=== PATIENT | female | born 1945 | race Caucasian/White ===

== ENCOUNTER 2017-08-22 17:18 | Inpatient (IN) | payer MEDICARE, OTHER ==
[~2017-08-22] VITALS: Ht 162.6 cm; Wt 61.9 kg
[2017-08-22] MEDS ORDERED: DEXAMETHASONE 10MG/ML PF INJ IV ONE (17:45)
[2017-08-22] MEDS ORDERED: MAGNESIUM SULFATE 2GM/50ML 50 ML IV ONE (17:45)
[2017-08-22] MEDS ORDERED: ALBUTEROL/IPRATROPIUM 3 ML NEB NEB ONE (17:45)
[2017-08-22 18:02] LABS: BASOPHILS % 0.3 % (0.0-1.0); EOSINOPHILS % 0.1 % (0.0-6.0); HEMATOCRIT 46.4 % (34.2-44.1); HEMOGLOBIN 14.4 g/dL (12.0-16.0); LYMPHOCYTES # (AUTO) 1.5 (1.0-3.2); LYMPHOCYTES % 19.1 % (18.0-39.1); MEAN CORPUSCULAR HEMOGLOBIN 29.8 pg (28-32); MEAN CORPUSCULAR VOLUME 95.9 fL (81-99); MONOCYTES # (AUTO) 0.8 (0.2-0.8); MONOCYTES % 9.9 % (4.4-11.3); NEUTROPHILS # (AUTO) 5.4 (2.1-6.9); PLATELET COUNT 181 x10e3/uL (140-360); RED BLOOD COUNT 4.84 x10e6/uL (3.6-5.1); RED CELL DISTRIBUTION WIDTH 15.3 % (11.7-14.4)
[2017-08-22] MEDS ORDERED: DEXAMETHASONE SOD PHOS 10 MG/1 ML VIAL ONE (18:02)
[2017-08-22 18:13] LABS: INR 1.04; PROTHROMBIN TIME 12.8 seconds (11.9-14.5)
[2017-08-22 18:14] LABS: PARTIAL THROMBOPLASTIN TIME 24.8 seconds (23.8-35.5)
[2017-08-22 18:21] LABS: ALANINE AMINOTRANSFERASE 45 IU/L (0-55); ALBUMIN 3.2 g/dL (3.5-5.0); ALKALINE PHOSPHATASE 66 IU/L (40-150); ANION GAP 11.7 mmol/L (8-16); BLOOD UREA NITROGEN 27 mg/dL (7-26); BUN/CREATININE RATIO 35 (6-25); CALCIUM 10.1 mg/dL (8.4-10.2); CARBON DIOXIDE 37 mmol/L (22-29); CHLORIDE 96 mmol/L (98-107); CREATINE KINASE 52 IU/L (29-168); CREATININE, SERUM 0.78 mg/dL (0.57-1.11); EST GLOMERULAR FILTRATION RATE > 60 ML/MIN (60-); GLUCOSE 99 mg/dL (74-118); POTASSIUM 4.7 mmol/L (3.5-5.1); SODIUM 140 mmol/L (136-145)
[2017-08-22] MEDS ORDERED: SODIUM CHLORIDE 0.9% 50ML 50 ML ONE (18:31)
[2017-08-22] MEDS ORDERED: IOPAMIDOL 370 MG/ML 200 ML INFUS..BTL INJ ONE (18:32)
[2017-08-22 18:54] LABS: ABG PH 7.42 (7.31-7.41)
[2017-08-22 18:55] LABS: ABG HCO3 44 mmol/L (23-28); ABG PCO2 67 mmHg (41-51); ABG PO2 88 mmHg (80-105)
--- NOTE | 2017-08-22 19:07 | Diagnostic Imaging Report ---
PROCEDURE: A single AP view of the chest. COMPARISON: Chest x-ray 03/14/2010. INDICATIONS: LOW OXYGEN FINDINGS: Lines/tubes: None. Lungs: Lungs are hypoinflated. Airspace opacities in the right lung base is again seen and slightly increased in prominence secondary to hypoinflation. Right infrahilar masslike region is more prominent. Left basilar atelectasis. Superimposed pneumonia cannot be excluded. Interstitial edema. Pleura: Likely small right pleural effusion. Heart and mediastinum: The heart and the mediastinum are normal in size. Bones: No acute bony abnormality. Right axillary surgical clips. IMPRESSION: 1. Hypoinflated lungs. Interstitial edema which may be artifactual secondary to hypoinflated lungs. 2. Likely small right pleural effusion. Previous right lung base air space opacity is more accentuated by low lung bones. Right infrahilar prominence is increased suggestive of mass or adenopathy. Dictated by: Matthew Felix M.D. on 08/22/2017 at 19:09 Electronically approved by: Matthew Felix M.D. on 08/22/2017 at 19:09
[2017-08-22] MEDS ORDERED: FUROSEMIDE INJ 10 MG/ML 4 ML VIAL IV ONE (19:15)
--- NOTE | 2017-08-22 19:56 | Diagnostic Imaging Report ---
EXAM: CT Chest WITH contrast 08/22/2017 5:26 PM INDICATION: Shortness of breath. Hypoxia. Tachycardia rule out PE. COMPARISON: None TECHNIQUE: Chest was scanned utilizing a multidetector helical scanner from the lung apex through the level of the adrenal glands without administration of IV contrast. Coronal and sagittal reformations were obtained. Pulmonary embolism protocol was performed. IV CONTRAST: 100 mL of Omnipaque 300 RADIATION DOSE: Total DLP: 498.55 mGy*cm Estimated effective dose: (DLP x 0.014 x size factor) mSv COMPLICATIONS: None FINDINGS: LINES/ TUBES: None. LUNGS AND AIRWAYS: No filling defects to the resolved segmental pulmonary arteries to suggest pulmonary embolism as per clinical query. The main pulmonary artery is mildly dilated estimated at 3.3 cm in diameter. Right upper lobe patchy airspace disease with air bronchograms. Bilateral lower lobe compressive atelectasis. Left lower lobe subsegmental atelectasis. Prominence of the pulmonary vasculature with redistribution bilaterally. PLEURA: Small right pleural effusion HEART AND MEDIASTINUM: The thyroid gland is normal. No mediastinal, hilar or axillary lymphadenopathy. The heart is moderately enlarged. tThere is no pericardial effusion. UPPER ABDOMEN: Limited non-contrast views of the upper abdomen show no colonic diverticulosis without diverticulitis. The adrenal glands are normal. BONES: No acute osseous abnormality. Mild dextroscoliosis of the thoracic spine may be positional. SOFT TISSUES: Right axillary surgical clips. IMPRESSION: 1. No evidence of pulmonary embolism. 2. Moderate cardiomegaly and bilateral pulmonary venous congestion. Cannot exclude superimposed infection in the right lung. 3. Small right pleural effusion. Bilateral lower lobe atelectasis. 4. Patchy airspace disease in the right apex may represent scarring. Recommend follow-up after treatment to document resolution. Signed by: Dr. Kanika Roberts M.D. on 08/22/2017 7:53 PM
[2017-08-22 20:42] LABS: CLARITY,URINE CLEAR (CLEAR); COLOR,URINE YELLOW (YELLOW)
[2017-08-22 20:43] LABS: BILIRUBIN,URINE NEGATIVE (NEGATIVE); KETONES,URINE NEGATIVE (NEGATIVE); LEUKOCYTE ESTERASE ,URINE NEGATIVE (NEGATIVE); NITRITE,URINE NEGATIVE (NEGATIVE); PROTEIN,URINE DIPSTICK 2+ (NEGATIVE); URINE UROBILINOGEN 0.2 mg/dL (0.2 - 1)
[2017-08-22 21:06] LABS: EPITHELIAL CELLS,URINE RARE /LPF; WBC,URINE (MAN) 0-5 /HPF (0-5)
[2017-08-22 21:07] LABS: BACTERIA,URINE FEW /HPF
[2017-08-22 21:08] LABS: HYALINE CASTS 0-1 (0-1)
[2017-08-22] MEDS ORDERED: ASPIRIN 81 MG CHEW TAB PO ONE (21:15)
--- OUTSIDE RECORDS SUMMARY | 2017-08-22 21:25 | XMS REPORT ---
Author Author [facility] Address Unknown Phone Unavailable Care Team Providers Care Bond Runner Name Role Phone DESTINEE GARCIA Unavailable Unavailable Problems This patient has no known problems. Allergies, Adverse Reactions, Alerts This patient has no known allergies or adverse reactions. Medications This patient has no known medications. Results Test Description Test Time Test Comments Text Results Atomic Results Result Comments CT CHEST W [place] [address] Patient Name: INA HOLLIS MR #: [id number] : 1945 Age/Sex: 72/F Req # : [id number] Adm Physician: Ordered by: DESTINEE GARCIA MD Report #: [id number] Location: ER Room/Bed: Procedure: [id number] CT/CT CHEST W Exam Date: 08/22/17 Exam Time: 1925 REPORT STATUS: Signed EXAM: CT Chest WITH contrast 08/22/2017 5:26 PM INDICATION: Shortness of breath. Hypoxia. Tachycardia rule out PE. COMPARISON: None TECHNIQUE: Chest was scanned utilizing a multidetector helical scanner from the lung apex through the level of the adrenal glands without administration of IV contrast. Coronal and sagittal reformations were obtained. Pulmonary embolism protocol was performed. IV CONTRAST : 100 mL of Omnipaque 300 RADIATION DOSE: Total DLP: 498.55 mGy*cm Estimated effective dose: (DLP x 0.014 x size factor) mSv COMPLICATIONS: None FINDINGS: LINES/ TUBES: None. LUNGS AND AIRWAYS: No filling defects to the resolved segmental pulmonary arteries to suggest pulmonary embolism as per clinical query. The main pulmonary artery is mildly dilated estimated at 3.3 cm in diameter. Right upper lobe patchy airspace disease with air bronchograms. Bilateral lower lobe compressive atelectasis. Left lower lobe subsegmental atelectasis. Prominence of the pulmonary vasculature with redistribution bilaterally. PLEURA: Small right pleural effusion HEART AND MEDIASTINUM: The thyroid gland is normal. No mediastinal, hilar or axillary lymphadenopathy. The heart is moderately enlarged. tThere is no pericardial effusion. UPPER ABDOMEN: Limited non-contrast views of the upper abdomen show no colonic diverticulosis without diverticulitis. The adrenal glands are normal. BONES : No acute osseous abnormality. Mild dextroscoliosis of the thoracic spine may be positional. SOFT TISSUES: Right axillary surgical clips. IMPRESSION: 1. No evidence of pulmonary embolism. 2. Moderate cardiomegaly and bilateral pulmonary venous congestion. Cannot exclude superimposed infection in the right lung. 3. Small right pleural effusion. Bilateral lower lobe atelectasis. 4. Patchy airspace disease in the right apex may represent scarring. Recommend follow-up after treatment to document resolution. Signed by: Dr. Kanika Rivera M.D. on 2017 7:53 PM Dictated By: EDA RIVERA MD, MD 52 Transcribed By: CHANA on 08/22/171952 COPY TO: DESTINEE GARCIA MD CHEST SINGLE (PORTABLE) [place] [address] Patient Name: INA HOLLIS MR #: [id number] : 1945 Age/Sex: 72/F Req #: [id number] Adm Physician: Ordered by: JANY PAREKH NP Report #: [id number] Location: ER Room/Bed: Procedure: [id number] DX/CHEST SINGLE (PORTABLE) Exam Date: 08/22/17 Exam Time: 1830 REPORT STATUS: Signed PROCEDURE: A single AP view of the chest. COMPARISON: Chest x-ray 03/14/2010. INDICATIONS: LOW OXYGEN FINDINGS: Lines/tubes: None. Lungs : Lungs are hypoinflated. Airspace opacities in the right lung base is again seen and slightly increased in prominence secondary to hypoinflation. Right infrahilar masslike region is more prominent. Left basilar atelectasis. Superimposed pneumonia cannot be excluded. Interstitial edema. Pleura: Likely small right pleural effusion. Heart and mediastinum: The heart and the mediastinum are normal in size. Bones: No acute bony abnormality. Right axillary surgical clips. IMPRESSION: 1. Hypoinflated lungs. Interstitial edema which may be artifactual secondary to hypoinflated lungs. 2. Likely small right pleural effusion. Previous right lung base air space opacity is more accentuated by low lung bones. Right infrahilar prominence is increased suggestive of mass or adenopathy. Dictated by: Sánchez Madrid M.D. on 08/22/2017 at 19:09 Electronically approved by: Sánchez Madrid M.D. on 08/22/2017 at 19:09 Dictated By: SÁNCHEZ MADRID MD 08 Transcribed By: MERCED on 08/22/171908 COPY TO: JANY PAREKH NP
[2017-08-22 21:29] LABS: ABG HCO3 44 mmol/L (23-28); ABG PCO2 88 mmHg (41-51); ABG PO2 91 mmHg (80-105)
[2017-08-22] MEDS ORDERED: DIPHENHYDRAMINE HCL INJ 50 MG/ML VIAL ONE (22:36)
[2017-08-22] MEDS ORDERED: SUCCINYLCHOLINE CHLORIDE 20 MG/ML 10ML VIAL ONE (22:47)
[2017-08-22] MEDS ORDERED: SUCCINYLCHOLINE 200 MG/10 ML SYR IV STA (22:56)
[2017-08-22] MEDS ORDERED: DEXMEDETOMIDINE HCL 200 MCG in SODIUM CHLORIDE 0.9% 50ML 48 ML IV PRN (23:00)
[2017-08-22] MEDS ORDERED: MIDAZOLAM HCL 2 MG/2 ML VIAL IV STA (23:03)
[2017-08-22] MEDS ORDERED: MIDAZOLAM HCL 2 MG/2 ML VIAL ONE (23:03)
[2017-08-22 23:10] LABS: ABG PH 7.28 (7.31-7.41)
[2017-08-22 23:11] LABS: ABG HCO3 45 mmol/L (23-28); ABG PCO2 97 mmHg (41-51); ABG PO2 102 mmHg (80-105)
--- NOTE | 2017-08-22 23:33 | Diagnostic Imaging Report ---
EXAMINATION: CHEST SINGLE (PORTABLE) INDICATION: Intubation. COMPARISON: CT of the chest on 08/22/2017 FINDINGS: TUBES and LINES: Interval placement of endotracheal tube with tip 1.7 cm above the lucero in good position. LUNGS: Decreased right lung volume. Areas of peripheral atelectasis noted at the right lung base. PLEURA: Small right pleural effusion. HEART AND MEDIASTINUM: The mediastinum is slightly shifted to the right of midline due to right lung volume loss. There are atherosclerotic calcifications within the aorta. BONES AND SOFT TISSUES: No acute osseous lesion. Soft tissues are unremarkable. UPPER ABDOMEN: No free air under the diaphragm. IMPRESSION: Endotracheal tube in good position. Right lung pathology is best visualized on CT of the chest. Signed by: Dr. Hal Blum M.D. on 08/22/2017 11:29 PM
[2017-08-23] VITALS (90 sets, daily range): BP systolic 82–128; BP diastolic 51–79
[2017-08-23 01:34] LABS: CREATINE KINASE MB 10.8 ng/mL (0-5.0)
[2017-08-23 02:14] LABS: ABG HCO3 39 mmol/L (23-28); ABG PCO2 35 mmHg (41-51); ABG PH 7.66 (7.31-7.41); ABG PO2 100 mmHg (80-105)
[2017-08-23] MEDS ORDERED: DEXMEDETOMIDINE HCL 200 MCG in SODIUM CHLORIDE 0.9% 50ML 48 ML IV PRN (04:15)
[2017-08-23 05:55] LABS: BASOPHILS % 0.1 % (0.0-1.0); EOSINOPHILS % 0.1 % (0.0-6.0); HEMATOCRIT 42.8 % (34.2-44.1); HEMOGLOBIN 13.8 g/dL (12.0-16.0); LYMPHOCYTES % 10.9 % (18.0-39.1); MEAN CORPUSCULAR HEMOGLOBIN 29.4 pg (28-32); MEAN CORPUSCULAR HGB CONC 32.2 g/dL (31-35); MEAN CORPUSCULAR VOLUME 91.3 fL (81-99); MONOCYTES # (AUTO) 0.7 (0.2-0.8); MONOCYTES % 7.9 % (4.4-11.3); NEUTROPHILS # (AUTO) 7.2 (2.1-6.9); NEUTROPHILS % 80.6 % (38.7-80.0); PLATELET COUNT 159 x10e3/uL (140-360); RED BLOOD COUNT 4.69 x10e6/uL (3.6-5.1)
--- NOTE | 2017-08-23 06:17 | Diagnostic Imaging Report ---
EXAMINATION: CHEST SINGLE (PORTABLE) INDICATION: CHF. COMPARISON: CT of the chest on 08/22/2017 and chest x-ray on 08/22/2017 FINDINGS: TUBES and LINES: The endotracheal tube is now at the level of the right mainstem bronchus. Repositioning is recommended. LUNGS: Decreased right lung volume. Areas of peripheral atelectasis noted at the right lung base. There is no evidence of pneumonia or pulmonary edema. PLEURA: Small right pleural effusion. HEART AND MEDIASTINUM: The mediastinum is slightly shifted to the right of midline due to right lung volume loss. There are atherosclerotic calcifications within the aorta. BONES AND SOFT TISSUES: No acute osseous lesion. Soft tissues are remarkable for innumerable surgical clips overlying the right axilla. UPPER ABDOMEN: No free air under the diaphragm. IMPRESSION: Endotracheal tube is now in suboptimal position of the origin of the right mainstem bronchus. Right lung pathology is best visualized on CT of the chest with moderate lung volume loss. Signed by: Dr. Hal Blum M.D. on 08/23/2017 6:14 AM
[2017-08-23 06:22] LABS: ALANINE AMINOTRANSFERASE 42 IU/L (0-55); ALBUMIN 2.9 g/dL (3.5-5.0); ALBUMIN/GLOBULIN RATIO 1.2 (0.8-2.0); ALKALINE PHOSPHATASE 56 IU/L (40-150); BLOOD UREA NITROGEN 27 mg/dL (7-26); BUN/CREATININE RATIO 31 (6-25); CALCIUM 9.2 mg/dL (8.4-10.2); CARBON DIOXIDE 33 mmol/L (22-29); CHLORIDE 94 mmol/L (98-107); CREATININE, SERUM 0.86 mg/dL (0.57-1.11); EST GLOMERULAR FILTRATION RATE > 60 ML/MIN (60-); GLUCOSE 107 mg/dL (74-118); SODIUM 138 mmol/L (136-145)
[2017-08-23 06:28] LABS: ABG HCO3 36 mmol/L (23-28); ABG PCO2 31 mmHg (41-51); ABG PH 7.68 (7.31-7.41); ABG PO2 86 mmHg (80-105)
[2017-08-23 07:44] LABS: CREATINE KINASE MB 13.1 ng/mL (0-5.0)
--- NOTE | 2017-08-23 08:56 | Diagnostic Imaging Report ---
PROCEDURE: A single AP view of the chest. COMPARISON: 08/23/2017 at 0531 hours. INDICATIONS: AMS, ET TUBE POSITION FINDINGS: The endotracheal tube has been retracted. The tip now projects 3.3 cm above the lucero. Appearance of the lungs is overall unchanged with right greater than left lung base atelectasis and small bilateral pleural effusions. Stable cardiomediastinal contour with tortuosity and atherosclerotic calcification of the thoracic aorta. Surgical clips along the right chest wall. IMPRESSION: Interval retraction of the endotracheal tube with the tip now projecting 3.3 cm above the lucero. Otherwise stable appearance of the lungs relative to 0531 hours. Dictated by: Samuel Le M.D. on 08/23/2017 at 8:58 Electronically approved by: Samuel Le M.D. on 08/23/2017 at 8:58
[2017-08-23] MEDS ORDERED: FUROSEMIDE INJ 10 MG/ML 4 ML VIAL IV SCH (09:00)
[2017-08-23] MEDS ORDERED: POTASSIUM CHLORIDE 10 MEQ TABCR PO ONE (09:00)
[2017-08-23] MEDS ORDERED: SODIUM CHLORIDE 0.9% 1000ML 1,000 ML ONE (09:57)
[2017-08-23] MEDS ORDERED: AZITHROMYCIN 500MG/NS 250 ML 250 ML ONE (10:09)
[2017-08-23] MEDS: CEFTRIAXONE SOD 1 GM VIAL IV SCH (10:19)
[2017-08-23] MEDS: AZITHROMYCIN 500MG/NS 250 ML 250 ML IV SCH (10:19)
--- NOTE | 2017-08-23 10:22 | History and Physical ---
PCP: Pearl Stallings MD CONSULTANTS: Dr. Evin Nino and Dr. Samuel Carrasco CHIEF COMPLAINT: Pulmonary edema and respiratory failure. HISTORY: This is a 72-year-old female with no significant coronary problem in the past. The patient has progressive shortness of breath and came in with pulmonary edema, subsequently went into respiratory failure and required intubation. Her echocardiogram done today showed her ejection fraction is approximately 40%. CT scan of the chest showed pulmonary edema. Patient is receiving diuretic. She is on ventilator support now. She did retain CO2 with 88 to 97, even on BiPAP during the night. The patient is now on ventilator support, assist control with 40% FiO2. Patient seems to be comfortable at this time. PAST MEDICAL HISTORY: Hypertension. History of laparoscopic colorectal partial resection. History of asthma. SOCIAL HISTORY: Patient does not smoke or use alcohol. No recreational drug use. ALLERGIES: NO KNOWN ALLERGIES. HOME MEDICATIONS: List will be available for review. REVIEW OF SYSTEMS: Patient on ventilator support, assist control now. PHYSICAL EXAMINATION VITAL SIGNS: Temperature is 98. Blood pressure 93/59. Pulse rate 78. Respirations 22. GENERAL: The patient is on vent support, assist control 40% FiO2. HEENT: Normocephalic and atraumatic. Sclerae are anicteric. NECK: Supple grossly. Positive JVD. PULMONARY: Diminished breath sounds with rales. CARDIOVASCULAR: Regular rate and rhythm. ABDOMEN: Soft. No distention. EXTREMITIES: Trace to 1+ edema. NEUROLOGIC: Sedation on vent support. LABORATORY: Sodium 138, potassium 4, chloride 94, bicarb 33, BUN 27, creatinine 0.8. Glucose 107. WBC is 8.9. Hemoglobin 13.8. Hematocrit 43. Platelets 159. CTA of the chest and x-ray consistent with pulmonary edema. Cardiac enzymes have been negative. BNP on admission 776. CK is 99. Coagulation is unremarkable. Urinalysis is negative. IMPRESSION 1. Respiratory failure acutely. Mechanical ventilator support. 2. Pulmonary edema. 3. Congestive heart failure acute. Systolic congestive heart failure newly diagnosed. 4. Hypotensive, but episodically. PLAN: Continue to diurese. Cardiology consultation with Dr. Evin Nino and critical care with Dr. Samuel Carrasco. Continue with current management. Repeated lab work. Check electrolytes. May need potassium replacement. Job#: [id number]
[2017-08-23] MEDS: SODIUM CHLORIDE 0.9% 1000ML 1,000 ML IV SCH ×2 (10:30→18:34)
[2017-08-23] MEDS: PANTOPRAZOLE 40 MG 10ML VIAL IV SCH (11:29)
[2017-08-23 11:49] LABS: ABG HCO3 40 mmol/L (23-28); ABG PCO2 48 mmHg (41-51); ABG PH 7.53 (7.31-7.41); ABG PO2 119 mmHg (80-105)
--- NOTE | 2017-08-23 12:51 | Consultation ---
DATE OF CONSULTATION: August 23, 2017 CARDIOLOGY CONSULTATION ATTENDING PHYSICIAN: Dr. Bucky Jiménez Thank you so much for asking me to see this nice lady in consultation. Ms. Ponce is an elderly 72-year-old woman who was brought to the emergency room by her family with decreased alertness and shortness of breath. History of present illness is obtained from the patient's daughter at the bedside, tells me that she has been very sleepy in the daytime, seemed to be short of breath but she did not note any particular coughing, sputum, fever or sweats. HISTORY OF PRESENT ILLNESS: Patient never known of any cardiac problem. Family denies any chest pain or palpitations. PAST MEDICAL HISTORY: Significant for "asthma." She has been albuterol inhaler at home. She had breast cancer about 20 years ago, operated at [facility] on the right axilla, treated with chemo, radiation and "bone marrow transplant" according to the family's history saying it was an experimental treatment at [facility] at that time about 20 years ago. Evidently no evidence of recurrence with breast cancer has ever been noted. She did have a surgery for colon problems that evidently reportedly was found to be further associated with the rectum at [facility] 2016 and the family tells me that there were problems with "CO2 narcosis" during that hospitalization. REVIEW OF SYSTEMS: Otherwise not available. PHYSICAL EXAMINATION GENERAL: Shows a sleepy white woman on ventilator who does nod her head and move her arms and legs. VITALS: Blood pressure is 90 to 95 systolic, heart rate is 79. HEENT: Otherwise unremarkable. NECK: No jugular venous distention. THORAX: Heart sounds S1, S2 are equal. No murmurs. LUNGS: Have coarse rhonchi bilaterally. ABDOMEN: Protuberant. Normal bowel sounds, nontender. EXTREMITIES: No cyanosis, clubbing or edema. EKG shows sinus rhythm, sinus tachycardia with no significant ST or T-wave changes. LABORATORY DATA: Show initial BNP of 776 with repeat of 280. CAT scan of the chest shows right apex scarring and infiltrate with right pleural process. Troponins are normal times 3. Echocardiogram is a technically difficult study, a rather poor study, but suggests ejection fraction 45 to 50% without pericardial or significant valvular disease. ASSESSMENT 1. Pneumonia. 2. Chronic obstructive pulmonary disease without history of tobacco usage. 3. Minimal elevation of brain natriuretic peptide with echocardiogram ejection fraction 45 to 50%. PLAN: Agree with antibiotics and ventilator support. Will stop Lasix and give IV fluids. Have discussed with family at bedside. Prognosis is guarded. Thank for asking to see her consultation. ZAINAB PAREDES MD Job#: [id number] DG cc:Bertha GAMBLE MD
--- NOTE | 2017-08-23 15:05 | Consultation ---
DATE OF CONSULTATION: PULMONARY CRITICAL CARE CONSULTATION PRIMARY CARE PHYSICIAN: Pearl Stallings MD HPI: Ms. Ponce is a 72-year-old female who was brought into the emergency room by her because she was not feeling well and she was increasingly somnolent. reported that he noticed that patient was sleepy during the day for the last week or so, was having difficulty talking and breathing. She is a lifelong nonsmoker. She was apparently prescribed a pain medication, which they do not remember the name for her stomach pain, which she has been taking for the last 1 to 2 weeks. She does not snore. She has never been diagnosed with obstructive sleep apnea. She has no major medical issues. REVIEW OF SYSTEMS: Unable to elicit from the patient as she is on sedation and intubated. PAST MEDICAL HISTORY: History of hypertension. No known history of heart failure per the family. FAMILY AND SOCIAL HISTORY: She lives with her . She does not smoke and does not drink. PHYSICAL EXAMINATION VITALS: Temperature 98.8, pulse of 78, blood pressure 93/60, respiratory rate of 18, and O2 sat 98%. HEENT: Head atraumatic, normocephalic. Pupils reactive. CHEST: Clear to auscultation bilaterally. Reduced air entry on the bases. Crackles on the bases. HEART: S1 and S2 audible. ABDOMEN: Soft, nontender, and nondistended. EXTREMITIES: No clubbing, cyanosis, or edema. NEUROLOGIC: Sedated and intubated. LABORATORY DATA: White count of 8000, hemoglobin 13.8, and platelets 159. Chemistry: Sodium 138, potassium 4.0, chloride 94, bicarb 33, BUN 27, and creatinine 0.86. Creatinine kinase when she came in was 52 and now it is 699, CK-MB 13.10, and troponin has been negative. BNP 280.5. TSH 1.44. Blood gas, which was initially done in the emergency showed pH of 7.42, pCO2 of 67, and pO2 of 88; this was done on FiO2 of 100%. DIAGNOSTIC DATA: Chest x-ray: I have reviewed the images showing low lung volumes and dense right lower lobe infiltrate; that was the first x-ray that was done. CT of the chest, I have reviewed the images showing bilateral air space opacities and right apex has an area of consolidation and there is right lower lobe area of consolidation as well. ASSESSMENT AND PLAN: Ms. Ponce is a 72-year-old female who presented with increasing somnolence and shortness of breath. She was having problem with breathing and increasing somnolence for the last few days. She was hypercapnic on admission. The bicarbonate was 37 on admission, which suggests the patient has been chronically hypercapnic for quite some time. CURRENT PROBLEMS 1. [id number] hypercapnic respiratory failure: Etiology is not very clear. Patient is not a smoker neither she is obese; that rules out chronic obstructive pulmonary disease and obesity hypoventilation syndrome. Chest x-ray is showing low lung volumes. Neuromuscular disorder can be a possibility; however, the symptoms are not chronic and the physical exam is not consistent with this diagnosis. 2. High CPKs with CK-MB also high, however, troponins are normal, could be suggestive of myositis or viral muscle injury. We will follow. 3. Possibility of heart failure as BNP was high, however, no previous history of coronary artery disease. Echo has been ordered. We will follow the results. 4. Right lower lobe pneumonia, could be aspiration when she was somnolent and was unable to protect the airway, dense consolidation in the right upper lobe area as well. In my opinion, I cannot rule out mass and of course will need a followup CT once the acute phase is over. I will start the patient on IV antibiotics for pneumonia. 5. Ventilator settings reviewed. CPAP and pressure support tried at bedside. Patient is still somnolent. We will discontinue the Precedex and continue to attempt weaning. 6. Discussed with patient's and daughter at bedside in detail. Critical care time spent 45 minutes. Job#: [id number] VAS
[2017-08-23 15:21] LABS: CREATINE KINASE MB 8.7 ng/mL (0-5.0)
[2017-08-23] MEDS: ENOXAPARIN SOD INJ 40 MG/0.4 ML SYR SC SCH (18:34)
[2017-08-23] MEDS ORDERED: SODIUM CHLORIDE 0.9% 1000ML 1,000 ML IV SCH (21:30)
[2017-08-24] VITALS (40 sets, daily range): BP systolic 108–135; BP diastolic 63–82
[2017-08-24 06:07] LABS: BASOPHILS % 0.3 % (0.0-1.0); EOSINOPHILS % 0.2 % (0.0-6.0); HEMATOCRIT 43.9 % (34.2-44.1); HEMOGLOBIN 14.3 g/dL (12.0-16.0); LYMPHOCYTES # (AUTO) 1.9 (1.0-3.2); LYMPHOCYTES % 21.1 % (18.0-39.1); MEAN CORPUSCULAR HEMOGLOBIN 29.2 pg (28-32); MEAN CORPUSCULAR HGB CONC 32.6 g/dL (31-35); MEAN CORPUSCULAR VOLUME 89.8 fL (81-99); MONOCYTES # (AUTO) 0.7 (0.2-0.8); NEUTROPHILS # (AUTO) 6.4 (2.1-6.9); NEUTROPHILS % 70.1 % (38.7-80.0); PLATELET COUNT 146 x10e3/uL (140-360); RED BLOOD COUNT 4.89 x10e6/uL (3.6-5.1); RED CELL DISTRIBUTION WIDTH 15.7 % (11.7-14.4)
[2017-08-24 06:42] LABS: ANION GAP 13.3 mmol/L (8-16); BLOOD UREA NITROGEN 26 mg/dL (7-26); BUN/CREATININE RATIO 33 (6-25); CALCIUM 8.3 mg/dL (8.4-10.2); CARBON DIOXIDE 27 mmol/L (22-29); CHLORIDE 103 mmol/L (98-107); EST GLOMERULAR FILTRATION RATE > 60 ML/MIN (60-); GLUCOSE 64 mg/dL (74-118); POTASSIUM 3.3 mmol/L (3.5-5.1); SODIUM 140 mmol/L (136-145)
[2017-08-24] MEDS: AZITHROMYCIN 500MG/NS 250 ML 250 ML IV SCH (09:36)
[2017-08-24] MEDS: PANTOPRAZOLE 40 MG 10ML VIAL IV SCH (09:36)
[2017-08-24] MEDS: CEFTRIAXONE SOD 1 GM VIAL IV SCH (09:36)
[2017-08-24 09:52] LABS: ABG HCO3 30 mmol/L (23-28); ABG PCO2 42 mmHg (41-51); ABG PH 7.46 (7.31-7.41); ABG PO2 149 mmHg (80-105)
[2017-08-24] MEDS ORDERED: POTASSIUM CHLORIDE 20MEQ/100ML 200 ML IV ONE (10:00)
[2017-08-24] MEDS ORDERED: SODIUM CHLORIDE 0.9% 500ML 500 ML ONE (13:25)
[2017-08-24] MEDS: ENOXAPARIN SOD INJ 40 MG/0.4 ML SYR SC SCH (18:53)
[2017-08-25] VITALS (20 sets, daily range): BP systolic 102–129; BP diastolic 58–85
[2017-08-25] MEDS: PANTOPRAZOLE 40 MG 10ML VIAL IV SCH (08:51)
[2017-08-25] MEDS: CEFTRIAXONE SOD 1 GM VIAL IV SCH (08:51)
[2017-08-25] MEDS: AZITHROMYCIN 500MG/NS 250 ML 250 ML IV SCH (08:51)
[2017-08-25] MEDS: POTASSIUM CHLORIDE 10 MEQ TABCR PO ONE ×2 (12:43→12:54)
[2017-08-25] MEDS: ALBUTEROL/IPRATROPIUM 3 ML NEB NEB SCH ×2 (14:20→19:35)
[2017-08-25] MEDS: ENOXAPARIN SOD INJ 40 MG/0.4 ML SYR SC SCH (16:18)
[2017-08-26] VITALS (8 sets, daily range): BP systolic 107–144; BP diastolic 62–75
[2017-08-26] MEDS: ALBUTEROL/IPRATROPIUM 3 ML NEB NEB SCH ×4 (02:00→19:00)
[2017-08-26 06:18] LABS: BASOPHILS % 0.3 % (0.0-1.0); EOSINOPHILS # (AUTO) 0.1 (0.0-0.4); EOSINOPHILS % 1.4 % (0.0-6.0); HEMATOCRIT 45.6 % (34.2-44.1); HEMOGLOBIN 13.8 g/dL (12.0-16.0); LYMPHOCYTES # (AUTO) 1.2 (1.0-3.2); MEAN CORPUSCULAR HEMOGLOBIN 29.6 pg (28-32); MEAN CORPUSCULAR HGB CONC 30.3 g/dL (31-35); MEAN CORPUSCULAR VOLUME 97.9 fL (81-99); MONOCYTES # (AUTO) 0.6 (0.2-0.8); MONOCYTES % 8.4 % (4.4-11.3); NEUTROPHILS # (AUTO) 5.2 (2.1-6.9); NEUTROPHILS % 72.5 % (38.7-80.0); PLATELET COUNT 136 x10e3/uL (140-360); RED BLOOD COUNT 4.66 x10e6/uL (3.6-5.1); RED CELL DISTRIBUTION WIDTH 15.6 % (11.7-14.4)
--- NOTE | 2017-08-26 07:00 | Diagnostic Imaging Report ---
EXAMINATION: CHEST SINGLE (PORTABLE) INDICATION: Pneumonia COMPARISON: 08/23/2017 FINDINGS: TUBES and LINES: Interval removal of endotracheal tube. LUNGS: Lungs are not well inflated. There are bibasilar atelectasis. There is perihilar interstitial opacities, consistent with interstitial edema. PLEURA: Moderate right pleural effusion has increased HEART AND MEDIASTINUM: Cardiac size is mildly enlarged. The aorta is ectatic with atherosclerotic calcifications. BONES AND SOFT TISSUES: No acute osseous lesion. Soft tissues are again noted with multiple surgical clips in the right axillary region. UPPER ABDOMEN: No free air under the diaphragm. IMPRESSION: Worsening pulmonary edema, Central vascular congestion and right lower lobe consolidation consistent with pneumonia. Right pleural effusion is worsening. Signed by: Dr. Hal Blum M.D. on 08/26/2017 6:57 AM
[2017-08-26 08:16] LABS: ANION GAP 9.2 mmol/L (8-16); BLOOD UREA NITROGEN 17 mg/dL (7-26); BUN/CREATININE RATIO 27 (6-25); CARBON DIOXIDE 28 mmol/L (22-29); CHLORIDE 106 mmol/L (98-107); CREATININE, SERUM 0.64 mg/dL (0.57-1.11); EST GLOMERULAR FILTRATION RATE > 60 ML/MIN (60-); GLUCOSE 90 mg/dL (74-118); POTASSIUM 4.2 mmol/L (3.5-5.1); SODIUM 139 mmol/L (136-145)
[2017-08-26] MEDS: PANTOPRAZOLE SOD 40 MG TABEC PO SCH (08:24)
[2017-08-26 08:34] LABS: MAGNESIUM 1.8 MG/DL (1.3-2.1); PHOSPHORUS 2.5 MG/DL (2.3-4.7)
[2017-08-26] MEDS ORDERED: LEVOTHYROXINE75 MCG PO (08:42)
[2017-08-26] MEDS: AZITHROMYCIN 500MG/NS 250 ML 250 ML IV SCH (11:29)
[2017-08-26] MEDS: CEFTRIAXONE SOD 1 GM VIAL IV SCH (11:29)
[2017-08-26] MEDS: ENOXAPARIN SOD INJ 40 MG/0.4 ML SYR SC SCH (16:57)
[2017-08-27] VITALS: BP 123/59
[2017-08-27] MEDS: ALBUTEROL/IPRATROPIUM 3 ML NEB NEB SCH ×4 (01:00→20:00)
[2017-08-27 04:00] VITALS: BP 123/78
[2017-08-27 08:00] VITALS: BP 132/68
[2017-08-27] MEDS: PANTOPRAZOLE SOD 40 MG TABEC PO SCH (08:30)
[2017-08-27] MEDS: CEFTRIAXONE SOD 1 GM VIAL IV SCH (09:24)
[2017-08-27] MEDS: AZITHROMYCIN 500MG/NS 250 ML 250 ML IV SCH (09:24)
[2017-08-27 12:00] VITALS: BP 124/71
--- NOTE | 2017-08-27 15:39 | Diagnostic Imaging Report ---
PROCEDURE: Frontal and lateral views of the chest. COMPARISON: 08/26/17 INDICATIONS: PNEUMONIA FINDINGS: TUBES and LINES: None. LUNGS: Lungs are not well inflated. Pulmonary vascular congestion and moderate interstitial edema. PLEURA: Moderate right and trace left pleural effusions. HEART AND MEDIASTINUM: Cardiac silhouette is obscured. The aorta is ectatic with atherosclerotic calcifications. BONES AND SOFT TISSUES: Very limited evaluation by generalized demineralization. Again noted multiple surgical clips in the right axillary region. UPPER ABDOMEN: No free air under the diaphragm. IMPRESSION: No significant change from prior exam. Pulmonary vascular congestion and moderate interstitial edema. Moderate right and trace left pleural effusions, unchanged. Underlying infiltrate in the right mid to lower lung field cannot be excluded. Dictated by: Isael Martinez M.D. on 08/27/2017 at 15:42 Electronically approved by: Isael Martinez M.D. on 08/27/2017 at 15:42
[2017-08-27] MEDS: ENOXAPARIN SOD INJ 40 MG/0.4 ML SYR SC SCH (17:23)
[2017-08-28] VITALS: BP 116/59
[2017-08-28] MEDS: ALBUTEROL/IPRATROPIUM 3 ML NEB NEB SCH ×4 (01:00→19:30)
[2017-08-28 08:17] VITALS: BP 135/75
[2017-08-28] MEDS ORDERED: FUROSEMIDE INJ 10 MG/ML 4 ML VIAL IV SCH (09:30)
[2017-08-28] MEDS: PANTOPRAZOLE SOD 40 MG TABEC PO SCH (09:48)
[2017-08-28] MEDS: POTASSIUM CHLORIDE 10 MEQ TABCR PO SCH (09:50)
[2017-08-28] MEDS: CEFTRIAXONE SOD 1 GM VIAL IV SCH (10:15)
[2017-08-28 12:00] VITALS: BP 105/62
[2017-08-28 16:15] VITALS: BP 125/56
[2017-08-28] MEDS: ENOXAPARIN SOD INJ 40 MG/0.4 ML SYR SC SCH (17:36)
--- NOTE | 2017-08-28 17:37 | Diagnostic Imaging Report ---
PROCEDURE:US CHEST (INCL MEDIASTINUM) COMPARISON:None. INDICATIONS:PLEURAL EFFUSION FINDINGS: Examination shows trace right pleural effusion and minimal atelectasis. No pleural effusion is noted on the left side. CONCLUSION: 1. Trace right pleural effusion. Reggie Meyer M.D. Dictated by: Reggie Meyer M.D. on 08/28/2017 at 17:40 Electronically approved by: Reggie Meyer M.D. on 08/28/2017 at 17:40
--- NOTE | 2017-08-28 20:04 | Consultation ---
DATE OF CONSULTATION: August 28, 2017 HISTORY OF PRESENT ILLNESS: Ms. Ponce is a 72-year-old qjbzm-xhfi-jxyitkcd (naturally efsw-avut-ozqjdzod) woman with past medical history significant for breast cancer, in remission for 20+ years, and thyroid disease admitted to [facility] on August 22, 2017 with pulmonary edema and respiratory failure. On the of day admission, Ms. Ponce was seen by her primary care physician for fatigue and "feeling sleepy all the time." Ms. Ponce does not report shortness of breath, dyspnea on exertion, or productive cough when she saw her primary care physician. After performing an examination, Ms. Ponce' primary care physician recommended she come to the emergency center at [facility] for further evaluation. Upon arrival in the emergency center, the patient was in respiratory distress. Diagnostic studies revealed the patient to have pulmonary edema. Ms. Rowland respiratory distress worsened until intubation was required. Ms. Ponce was admitted to the intensive care unit where she remained for 2 to 3 days. Following extubation and stabilization of the patient's respiratory status, she was transferred to the [facility]. Upon admission to the hospital, the patient was found to have an elevated brain natriuretic peptide of over 700. An echocardiogram performed the day following admission was significant for mildly impaired left ventricular systolic function with an estimated ejection fraction between 45% and 50%. There is uncertainty on the part of the primary attending and consulting physicians as to the diagnosis of systolic congestive heart failure. The primary care attending and consulting physician are uncertain as to the cause for the patient's respiratory distress as well. An underlying neuromuscular disease is being considered as a possible etiology for Ms. Ponce' respiratory symptoms. Therefore, a neurology consultation was requested for evaluation for neuromuscular disease. Ms. Ponce does not report dysarthria, dysphagia, or shortness of breath. She does endorse bilateral ptosis, right greater than left. However, the patient has been told she has mechanical ptosis. Ms. Ponce does not endorse weakness in either her legs or her arms. She reports no difficulty standing from a seated position, reaching above her head to wash or brush her hair, walking long distances, climbing up or going down stairs. There is no family history of neuromuscular disease. REVIEW OF SYSTEMS: Shortness of breath, fatigue. Otherwise the 12 point review of systems is negative. PAST MEDICAL HISTORY: Thyroid disease, stage IV right breast cancer, status post right breast lumpectomy, chemotherapy and radiation-in remission for 20+ years, diverticulitis. PAST SURGICAL HISTORY: Right breast lumpectomy, bone marrow transplant, cholecystectomy, tonsillectomy, and partial colectomy. PAST HOSPITALIZATIONS: Surgeries for/procedures as listed, pneumonia, childbirth twice. FAMILY HISTORY: The patient's paternal grandparents are . Her paternal grandfather had coronary artery disease and from heart attack. Her paternal grandmother's medical history is unknown. The patient's maternal grandparents are . Her paternal grandfather from lung cancer and her maternal grandmother from a genitourinary (possibly ovarian) cancer. The patient's father is from liver cancer. Her mother is from coronary artery disease/myocardial infarction. The patient has 2 brothers, both of whom are living. One brother has diabetes mellitus type 1. A second brother has experienced multiple traumas from multiple falls. The patient has 2 children, both of whom are alive. Her oldest daughter is healthy. Her youngest daughter has diabetes mellitus type 1. SOCIAL HISTORY: The patient is . She graduated high school and attended some college. Ms. Ponce previously worked at a [employer]. The patient does not report current or prior tobacco use. She does report a remote history of social alcohol use. The patient reports a remote history of marijuana, barbiturate and LSD use as well. HOME MEDICATIONS: Levothyroxine 75 mcg by mouth every morning. HOSPITAL MEDICATIONS: Albuterol/ipratropium 3 mL via nebulizer every 6 hours, ceftriaxone 1 gram IV every 24 hours, potassium chloride 20 mEq by mouth daily, Lasix 40 mg IV daily, pantoprazole 40 mg by mouth daily, Lovenox 40 mg subcutaneously daily. ALLERGIES: NO KNOWN DRUG ALLERGIES. NO KNOWN FOOD ALLERGIES. NO KNOWN ALLERGIES TO LATEX. NO KNOWN ALLERGIES TO IODINE OR OTHER CONTRAST MATERIALS. PHYSICAL EXAMINATION: VITAL SIGNS: Height 64 inches, weight 147 pounds, BMI of 25.3 kg per meter squared. Blood pressure 125/58 mmHg, pulse 92 beats per minute. Respiratory rate 18 breaths per minute, oxygen saturation 98% on 2 liters by nasal cannula. GENERAL: The patient is awake and alert. Does not appear distressed. HEENT: Normocephalic and atraumatic. Pupils are equal, round and reactive to light. Moist mucous membranes. NECK: Supple. No appreciable thyromegaly. No appreciable carotid bruits. CARDIOVASCULAR: S1 and S2. Regular rate and rhythm. No murmurs, rubs or gallops. RESPIRATORY: Clear to auscultation bilaterally. No wheezes, rhonchi or rales. No accessory muscle use. EXTREMITIES: The skin is warm and dry. No clubbing or cyanosis. Positive for non-pitting edema over the feet. The posterior tibial and dorsalis pedis pulses are 2+ and symmetric. SKIN: No rashes or lesions. NEUROLOGIC: Memory/attention: The patient is awake and alert. Oriented to person, place, time, and situation. CRANIAL NERVES: Cranial nerve I: Not tested. Cranial nerves II, III, IV, : Pupils are equal and round, react briskly to light (from 4 mm to 2 mm). Extraocular movements intact. No nystagmus. Positive for bilateral ptosis, right greater than left. Due to the redundancy of skin over the upper eyelids, this is probable mechanical ptosis. No worsening ptosis was sustained upgaze. Cranial nerve V: Sensation to light touch and pinprick is intact in the bilateral V1 through V3 distributions. Strength of the temporalis and masseter muscles is within normal limits. Cranial nerve VII: The face is symmetric, as are all facial movements. Strength is within normal limits. Cranial nerve VIII: Hearing is intact to finger rub bilaterally. Cranial nerve IX and X: The soft palate elevates equally and symmetrically. Cranial nerve XI: Normal strength of the bilateral sternocleidomastoid and trapezius muscles. Cranial nerve XII: The tongue protrudes midline and moves symmetrically from side to side. STRENGTH: Bulk is normal for age. Strength is 5/5 in the bilateral deltoids, biceps, triceps, wrist flexors and extensors, finger flexors and extensors, intrinsic hand muscles, hip flexors, knee flexors and extensors, ankle dorsiflexion and plantar flexion, and intrinsic foot muscles. Tone is normal. DTRs: Deep tendon reflexes are 2+ and symmetric at the triceps, biceps, brachioradialis and patellas. Deep tendon reflexes are trace and symmetric at the Achilles. Plantar responses are flexor bilaterally. SENSATION: Intact to light touch and pinprick in both arms and both legs. CEREBELLAR: Zldvew-xyrv-dguvbz and heel-wiseman movements are intact without dysmetria or other impairment. GAIT: Deferred. SPEECH: Spontaneous speech is normal without appreciable dysarthria or aphasia. Repetition is intact. INVOLUNTARY MOVEMENTS: None. PRONATOR DRIFT: None. LABORATORY DATA: From August 26, 2017, sodium 139, potassium 4.2, chloride 106, carbon dioxide 28, anion gap 9.2, BUN 17, creatinine 0.64,estimated GFR greater than 60, BUN to creatinine ratio 27, glucose 90, calcium 8.0, phosphorus 2.5, magnesium 1.8. B-natriuretic peptide 776.4, 280.5, creatinine kinase 181, 699, 638. CK-MB 10.80, 13.10, 8.70. Troponin I is 0.027, 0.030, 0.031. TSH 1.444. From August 26, 2017, the white blood cell count is 7.23 with 72.5% neutrophils, 17.0% lymphocyte, 8.4% monocytes, 1.4% eosinophils and 0.3% basophils. Hemoglobin and hematocrit are 13.8 and 45.6, respectively. The platelet count is 136,000. From August 22, 2017, PT 12.8, INR 1.04, PTT 24.8. From August 24, 2017, an arterial blood gas reveals pH of 7.46, pCO2 42 and pO2 149, bicarbonate of 30, oxygen saturation 99.0, FIO2 of 40%. From August 22, 2017, urinalysis is significant for 2+ protein, 2+ blood, and 6 to 10 red blood cells. KO screen is pending. DIAGNOSTIC STUDIES: Chest x-ray 08/22/2017: Hypoinflated lungs. Interstitial edema which may be artifactual secondary to hypoinflated lungs. Likely small right pleural effusion. Previous right lung base airspace opacity is more accentuated by low lung volumes. Right infrahilar prominence is increased suggestive of mass or adenopathy. CT chest on 08/22/2017: No evidence of pulmonary embolism. Moderate cardiomegaly and bilateral pulmonary venous congestion. Cannot exclude superimposed infection in the right long. Small right pleural effusion. Bilateral lower lobe atelectasis. Patchy airspace disease in the right apex may represent scarring. Chest x-ray 08/22/2017: Endotracheal tube in good position. Right lung pathology is best visualized on CT of the chest. Chest x-ray 08/23/2017: Endotracheal tube is now in suboptimal position at the origin of the right mainstem bronchus. Right lung pathology is best visualized on CT of the chest with moderate lung volume loss. Chest x-ray on 08/23/2017: Interval retraction of endotracheal tube with the tib now projecting 3.3 cm above the lucero. Otherwise stable appearance of the lungs relative to 0531 hours. Echocardiogram on 08/23/2017: Overall left ventricular systolic function is mildly impaired with EF between 45% to 50%. There is no pericardial effusion. Chest x-ray08/26/2017: Worsening pulmonary edema. Central vascular congestion and right lower lobe consolidation consistent with pneumonia. Right pleural effusion is worsening. Chest x-ray on 08/27/2017: No significant change from prior exam. Pulmonary vascular congestion and moderate interstitial edema. Moderate right and trace left pleural effusions, unchanged. Underlying infiltrate in the right mid to lower lung field cannot be excluded. ASSESSMENT AND PLAN: Ms. Ponce is a 72-year-old sipkj-wlfo-xhymiqvv (naturally yqed-iwpo-iduofhgh) woman admitted to [facility] on August 22, 2017 with pulmonary edema and respiratory failure. Further evaluation on the days following admission revealed possible systolic congestive heart failure as well. As detailed in the history of present illness, the primary attending as well as the consulting physicians are uncertain as to the etiology of the patient's respiratory symptoms. They are considering an underlying neuromuscular disease. Ms. Ponce' neurological evaluation is nonfocal with the exception of bilateral ptosis, probably mechanical. Her laboratory data and other diagnostic studies have been reviewed and are documented above. Based on the history provided by the patient as well as her nonfocal neurological examination, it is unlikely an underlying neuromuscular disease is present. However, the patient has experienced worsening fatigue over the past few months. She does have bilateral ptosis, right greater than left. These signs and symptoms may be seen with a neuromuscular junction disorder (i.e. myasthenia gravis). RECOMMENDATIONS: 1. Muscle enzymes will be ordered for further evaluation of an underlying neuromuscular disease. 2. Due to concerns regarding a possible underlying neuromuscular disorder as the cause of the patient's respiratory symptoms, it is recommended the patient undergo an EMG for further evaluation. Unfortunately, this study cannot be performed in the hospital. Ms. Ponce will require outpatient followup for further evaluation. 3. Defer treatment of the remaining medical comorbidities to the primary and other services. Thank you for this consultation. I will continue to follow the patient while she remains in the hospital. TIME SPENT: 70 minutes. Job#: [id number] GH DIANA
[2017-08-28 20:24] VITALS: BP 123/66
[2017-08-28 20:25] VITALS: BP 123/66
[2017-08-29] VITALS (8 sets, daily range): BP systolic 100–135; BP diastolic 59–86
[2017-08-29] MEDS: ALBUTEROL/IPRATROPIUM 3 ML NEB NEB SCH ×4 (00:30→19:44)
[2017-08-29 06:13] LABS: BASOPHILS % 0.3 % (0.0-1.0); EOSINOPHILS # (AUTO) 0.1 (0.0-0.4); EOSINOPHILS % 1.8 % (0.0-6.0); HEMATOCRIT 47.9 % (34.2-44.1); LYMPHOCYTES # (AUTO) 1.4 (1.0-3.2); LYMPHOCYTES % 19.6 % (18.0-39.1); MEAN CORPUSCULAR HEMOGLOBIN 28.9 pg (28-32); MEAN CORPUSCULAR HGB CONC 29.2 g/dL (31-35); MONOCYTES # (AUTO) 0.7 (0.2-0.8); MONOCYTES % 9.1 % (4.4-11.3); NEUTROPHILS % 68.8 % (38.7-80.0); PLATELET COUNT 163 x10e3/uL (140-360); RED BLOOD COUNT 4.84 x10e6/uL (3.6-5.1); RED CELL DISTRIBUTION WIDTH 15.1 % (11.7-14.4)
[2017-08-29 06:36] LABS: ANION GAP 11.8 mmol/L (8-16); BLOOD UREA NITROGEN 11 mg/dL (7-26); BUN/CREATININE RATIO 15 (6-25); CALCIUM 9.5 mg/dL (8.4-10.2); CHLORIDE 94 mmol/L (98-107); CREATININE, SERUM 0.73 mg/dL (0.57-1.11); EST GLOMERULAR FILTRATION RATE > 60 ML/MIN (60-); GLUCOSE 99 mg/dL (74-118); POTASSIUM 4.8 mmol/L (3.5-5.1); SODIUM 144 mmol/L (136-145)
[2017-08-29 07:28] LABS: CARBON DIOXIDE 43 mmol/L (22-29)
[2017-08-29] MEDS: PANTOPRAZOLE SOD 40 MG TABEC PO SCH (07:30)
[2017-08-29] MEDS ORDERED: ACETAZOLAMIDE 250 MG TAB PO SCH (08:15)
[2017-08-29] MEDS ORDERED: MAGNESIUM HYDROXIDE 30 ML UDC PO PRN (08:30)
[2017-08-29] MEDS ORDERED: CITRATE OF MAGNESIA 300ML BOTTLE PO PRN (08:30)
[2017-08-29] MEDS ORDERED: FUROSEMIDE INJ 10 MG/ML 4 ML VIAL IV SCH (09:00)
[2017-08-29] MEDS: DOCUSATE SODIUM LIQD 100 MG/10 ML UDC NG SCH ×2 (09:00→17:30)
[2017-08-29] MEDS: FUROSEMIDE INJ 10 MG/ML 2 ML VIAL IV SCH (09:00)
[2017-08-29] MEDS: POTASSIUM CHLORIDE 10 MEQ TABCR PO SCH (09:00)
[2017-08-29] MEDS: CEFTRIAXONE SOD 1 GM VIAL IV SCH (11:00)
[2017-08-29] MEDS: ENOXAPARIN SOD INJ 40 MG/0.4 ML SYR SC SCH (17:30)
[2017-08-30] VITALS (7 sets, daily range): BP systolic 110–123; BP diastolic 69–85
--- NOTE | 2017-08-30 00:40 | Pulmonary Function Test ---
DATE OF STUDY: SPIROMETRY REPORT Patient of Dr. Jiménez. Restrictive spirometry: A very severe restriction. Forced vital capacity 0.86 L, 28% of predicted. FEV1 0.69 L, 30% of predicted. FEV1:FVC ratio 80%. FEF 25 to 75, 37%. There was significant improvement following inhalation of bronchodilators, 8% FVC to 0.93 L and 31% of predicted and 10% FEV1 to 0.76 L, 33% of predicted. Severe restriction with apparent improvement following inhalation of bronchodilators. Study was suboptimal because of coughing. Job#: [id number] CQ cc:MD GEORGETTE BOLDEN M.D. DR COURTNEY PRESTON
[2017-08-30] MEDS: ALBUTEROL/IPRATROPIUM 3 ML NEB NEB SCH ×4 (01:00→19:20)
[2017-08-30] MEDS: PANTOPRAZOLE SOD 40 MG TABEC PO SCH (07:30)
[2017-08-30] MEDS: DOCUSATE SODIUM LIQD 100 MG/10 ML UDC NG SCH ×2 (08:57→17:00)
[2017-08-30] MEDS: FUROSEMIDE INJ 10 MG/ML 2 ML VIAL IV SCH (08:57)
[2017-08-30] MEDS: POTASSIUM CHLORIDE 10 MEQ TABCR PO SCH (08:58)
--- NOTE | 2017-08-30 15:08 | Diagnostic Imaging Report ---
PROCEDURE: Frontal and lateral views of the chest. COMPARISON: Patients [facility], DX, CHEST 2 VIEWS, 08/27/2017, 15:05. INDICATIONS: SHORT OF BREATH, F/U CHEST X-RAY FINDINGS: Lines/tubes: None. Lungs and pleura: The lungs are well inflated. Interval decrease in size in bilateral pleural effusions and likely associated bilateral lower lobe atelectasis. This aerated portions of the upper lobes are clear. Stable right apical pleuroparenchymal scarring. Heart and mediastinum: Cardiac silhouette is partly obscured. Improved central pulmonary venous congestion and resolution of interstitial edema. Bones: No acute bony abnormality. IMPRESSION: 1. interval decrease in size in bilateral pleural effusions and likely associated atelectasis. 2. Decreased central venous congestion and resolution of interstitial edema Reggie Meyer M.D. Dictated by: Reggie Meyer M.D. on 08/30/2017 at 15:10 Electronically approved by: Reggie Meyer M.D. on 08/30/2017 at 15:10
[2017-08-31] VITALS: BP 97/60
[2017-08-31] MEDS: ALBUTEROL/IPRATROPIUM 3 ML NEB NEB SCH ×2 (03:00→07:18)
[2017-08-31 04:00] VITALS: BP 90/53
[2017-08-31] MEDS: PANTOPRAZOLE SOD 40 MG TABEC PO SCH (08:58)
[2017-08-31] MEDS: DOCUSATE SODIUM LIQD 100 MG/10 ML UDC NG SCH ×2 (08:58→09:00)
[2017-08-31] MEDS: FUROSEMIDE INJ 10 MG/ML 2 ML VIAL IV SCH (08:58)
[2017-08-31] MEDS: POTASSIUM CHLORIDE 10 MEQ TABCR PO SCH (08:59)
[2017-08-31 09:52] LABS: ANION GAP 12.5 mmol/L (8-16); BLOOD UREA NITROGEN 19 mg/dL (7-26); BUN/CREATININE RATIO 27 (6-25); CALCIUM 9.7 mg/dL (8.4-10.2); CARBON DIOXIDE 38 mmol/L (22-29); CHLORIDE 89 mmol/L (98-107); EST GLOMERULAR FILTRATION RATE > 60 ML/MIN (60-); GLUCOSE 173 mg/dL (74-118); POTASSIUM 4.5 mmol/L (3.5-5.1); SODIUM 135 mmol/L (136-145)
[2017-08-31 10:39] VITALS: BP 101/69
--- NOTE | 2017-08-31 14:26 | Discharge Summary ---
PCP: Dr. Pearl Powell. CONSULTANTS 1. Dr. Samuel Carrasco. 2. Dr. Evin Nino. 3. Dr. Marian Gallagher. FINAL DIAGNOSES 1. Acute respiratory failure with pulmonary edema associated with bilateral pleural effusion with ejection fraction approximately 45%-50%. 2. Community-acquired pneumonia. 3. Possible neuromuscular disorder. Patient refused EMG setup. DISPOSITION: The patient is referred to [facility] in the [facility]. SUMMARY: A 72-year-old female who came in with respiratory failure. Patient was in pulmonary edema. She was aggressively given diuretic. CT scan showed bilateral pleural effusion, pulmonary edema, vascular congestion. Patient also had bilateral lower extremity edema as well. She was aggressively diuresed. The CT scan with bilateral pleural effusion and also with cough, a low-grade fever, and sign of pneumonia. The patient was treated for possible community-acquired pneumonia along with pulmonary edema and congestive heart failure. She was given Lasix aggressively. The patient did better. The repeated chest x-ray showed improved bilateral pleural effusion. The ejection fraction on echocardiogram is 45%-50% calculated. Patient is doing better; however, she does have generalized weakness. She had ptosis of both eyes. Dr. Gallagher consulted. Dr. Gallagher recommended the patient for neuromuscular workup. Patient, however, refused EMG. [facility] information given to the patient. At this time, she is very stable. She will get home health arranged, which is done. She will go home with oxygen support. She will take Lasix 40 mg once a day, potassium 20 mEq daily, and ProAir HFA 2 puffs q.4 hours as needed for shortness of breath. I advised the patient to follow up with Dr. Benny Powell. Follow up with Dr. Gallagher. Follow up with the [facility]. I also advised the patient to follow up with Dr. Nino for cardiac monitoring especially with fluid overload episodically, most possible because of her neuromuscular disease. The patient is stable, discharged today. Instructions given to the patient. I do have a feeling that the patient will not follow up with all these recommendations because she say so. Job#: [id number] JULIUS
== END 2017-08-31 10:39 | disposition home or self-care (01) | DRG 208 ==
LOC: ER 17:18 → ERHOLD 21:23 → ICU 08-23 00:30 → IMCU 08-25 14:59
PROVIDERS: ADMIT Internal Medicine; ATTEND Internal Medicine
PROC: 5A1945Z Respiratory Ventilation, 24-96 Consecutive Hours (ICD-10-PCS; principal; 2017-08-22)
PROC: 0BH17EZ Insertion of Endotracheal Airway into Trachea, Via Natural or Artificial Opening (ICD-10-PCS; 2017-08-22)
DX: J18.9 Pneumonia, unspecified organism (principal); J96.02 Acute respiratory failure with hypercapnia; I50.21 Acute systolic (congestive) heart failure; J96.12 Chronic respiratory failure with hypercapnia; J44.0 Chronic obstructive pulmonary disease with (acute) lower respiratory infection; I11.0 Hypertensive heart disease with heart failure; R60.0 Localized edema; H02.403 Unspecified ptosis of bilateral eyelids; G70.00 Myasthenia gravis without (acute) exacerbation
CPT/HCPCS: 31500; 36415; 36600; 51700; 71045; 71046; 71260; 76604; 80048; 80053; 81001; 82085; 82550; 82553; 82805; 83735; 83874; 83880; 84100; 84443; 84484; 85025; 85610; 85730; 86039; 87040; 87086; 93005; 93306; 94002; 94003; 94640; 94660; 96365; 99284; J0330; J0456; J0696; J1100; J1200; J1650; J1940; J2250; J3480; J7030; J7040; Q9967

== ENCOUNTER → 2018-09-18 | Outpatient (CLI) | payer MEDICARE ==
[~2018-09-18] MED LIST: LEVOTHYROXINE75 MCG PO
--- NOTE | 2018-09-18 14:20 | Diagnostic Imaging Report ---
EXAM: CT Chest 09/18/2018 11:23 AM AM INDICATION: Respiratory failure with hypoxemia COMPARISON: None TECHNIQUE: Chest was scanned utilizing a multidetector helical scanner from the lung apex through the level of the adrenal glands without administration of IV contrast. Coronal and sagittal reformations were obtained. Low-dose protocol was performed. Technique modification was utilized to maintain the lowest dose possible to the patient. IV CONTRAST: None RADIATION DOSE: Total DLP: 322.35 mGy*cm Estimated effective dose: (DLP x 0.014 x size factor) mSv COMPLICATIONS: None FINDINGS: LINES/ TUBES: None. LUNGS AND AIRWAYS: Chronic appearing fibrocalcific opacities in the right upper lobe. Tracheobronchial calcification. Scattered calcified granulomas. Bilateral lower lobe bronchiectasis; left worse than right. PLEURA: The pleural spaces are clear. HEART AND MEDIASTINUM: The thyroid gland is normal. No mediastinal, hilar or axillary lymphadenopathy. The heart is normal in size.. Calcification within the aorta, coronary arteries and great vessels. Enlarged pulmonary arteries suggesting pulmonary hypertension. There is no pericardial effusion. UPPER ABDOMEN: Limited non-contrast views of the upper abdomen show no abnormality within the visualized liver, spleen, pancreas, or kidneys. The adrenal glands are normal. BONES: The visualized bony thorax is within normal limits. SOFT TISSUES: Multiple surgical clips in the right chest wall. IMPRESSION: 1. Chronic appearing fibrocalcific opacities in the right apex. 2. Basilar bronchiectasis; left side greater than right. 3. Calcified scattered granulomas. 4. Enlarged pulmonary arteries. Signed by: Dr. Alvaro Styles DO on 09/18/2018 2:16 PM
== END ==
LOC: CT 10:33
PROVIDERS: ATTEND Internal Medicine Pulmonary Disease
DX: J96.11 Chronic respiratory failure with hypoxia (principal)
CPT/HCPCS: 71250

== ENCOUNTER 2021-07-21 13:52 | Emergency (ER) | payer MEDICARE ==
[~2021-07-21] VITALS: Ht 162.6 cm; Wt 61.7 kg
[~2021-07-21 13:52] MED LIST changes: +CALCIUM CARBON500 MG PO; +FOSAMAX70 MG PO; +MAGNESIUM OXID400 MG PO; +MELOXICAM7.5 MG PO; +VITAMIN B COMP1 EACH PO; +VITAMIN B12 PO; +VITAMIN D3125 MCG PO; +VITAMIN E PO; +ZINC PO
[2021-07-21] MEDS ORDERED: SODIUM CHLORIDE 0.9% 1000ML 1,000 ML IV ONE (14:30)
[2021-07-21 14:36] LABS: BASOPHILS % 0.4 % (0.0-1.0); EOSINOPHILS % 0.1 % (0.0-6.0); HEMATOCRIT 33.5 % (34.2-44.1); HEMOGLOBIN 10.5 g/dL (12.0-16.0); LYMPHOCYTES # (AUTO) 1.5 (1.0-3.2); LYMPHOCYTES % 19.5 % (18.0-39.1); MEAN CORPUSCULAR HEMOGLOBIN 32.7 pg (28-32); MEAN CORPUSCULAR HGB CONC 31.3 g/dL (31-35); MEAN CORPUSCULAR VOLUME 104.4 fL (81-99); MONOCYTES # (AUTO) 0.4 (0.2-0.8); MONOCYTES % 5.6 % (4.4-11.3); NEUTROPHILS # (AUTO) 5.7 (2.1-6.9); NEUTROPHILS % 74.1 % (38.7-80.0); PLATELET COUNT 188 x10e3/uL (140-360); RED BLOOD COUNT 3.21 x10e6/uL (3.6-5.1)
[2021-07-21 14:54] LABS: INR 0.85; PROTHROMBIN TIME 12.4 seconds (11.9-14.5)
[2021-07-21 15:00] LABS: ALBUMIN 3.6 g/dL (3.5-5.0); ALBUMIN/GLOBULIN RATIO 1.2 (0.8-2.0); ANION GAP 11.8 mmol/L (8-16); CALCIUM 8.7 mg/dL (8.4-10.2); CREATININE, SERUM 0.65 mg/dL (0.57-1.11); POTASSIUM 4.8 mmol/L (3.5-5.1)
[2021-07-21] MEDS ORDERED: SODIUM CHLORIDE 0.9% 100 ML ONE (16:40)
[2021-07-21] MEDS ORDERED: IOPAMIDOL 370 MG/ML 200 ML INFUS..BTL INJ ONE (16:40)
[2021-07-21 16:53] VITALS: BP 146/80
== END 2021-07-21 16:55 | disposition home or self-care (01) ==
LOC: ER 14:16
DX: K62.5 Hemorrhage of anus and rectum (principal); K57.30 Diverticulosis of large intestine without perforation or abscess without bleeding; J44.9 Chronic obstructive pulmonary disease, unspecified; E03.9 Hypothyroidism, unspecified
CPT/HCPCS: 36415; 74174; 80053; 84484; 85025; 85610; 93005; 99284; C9113; J7030; J7050; Q9967

== ENCOUNTER 2021-12-08 15:23 | Emergency (ER) | payer MEDICARE, OTHER ==
[~2021-12-08] VITALS: Ht 162.6 cm; Wt 61.7 kg
[2021-12-08 16:17] LABS: BASOPHILS % 0.3 % (0.0-1.0); EOSINOPHILS # (AUTO) 0.2 (0.0-0.4); EOSINOPHILS % 2.3 % (0.0-6.0); HEMOGLOBIN 11.2 g/dL (12.0-16.0); LYMPHOCYTES # (AUTO) 1.7 (1.0-3.2); LYMPHOCYTES % 19.1 % (18.0-39.1); MEAN CORPUSCULAR HEMOGLOBIN 31.8 pg (28-32); MEAN CORPUSCULAR HGB CONC 30.3 g/dL (31-35); MEAN CORPUSCULAR VOLUME 105.1 fL (81-99); MONOCYTES # (AUTO) 0.7 (0.2-0.8); MONOCYTES % 7.4 % (4.4-11.3); NEUTROPHILS # (AUTO) 6.2 (2.1-6.9); NEUTROPHILS % 70.6 % (38.7-80.0); PLATELET COUNT 146 x10e3/uL (140-360); RED BLOOD COUNT 3.52 x10e6/uL (3.6-5.1)
[2021-12-08 16:27] LABS: INR 0.83; PROTHROMBIN TIME 12.2 seconds (11.9-14.5)
[2021-12-08 16:28] LABS: PARTIAL THROMBOPLASTIN TIME 29.2 seconds (23.8-35.5)
[2021-12-08 16:39] LABS: ALBUMIN 3.8 g/dL (3.5-5.0); ALBUMIN/GLOBULIN RATIO 1.3 (0.8-2.0); ANION GAP 13.4 mmol/L (8-16); CALCIUM 9.4 mg/dL (8.4-10.2); CREATININE, SERUM 0.72 mg/dL (0.57-1.11); POTASSIUM 4.4 mmol/L (3.5-5.1)
== END 2021-12-08 18:38 | disposition other institution (70) ==
LOC: ER 15:28
DX: S06.2X0A Diffuse traumatic brain injury without loss of consciousness, initial encounter (principal); W01.0XXA Fall on same level from slipping, tripping and stumbling without subsequent striking against object, initial encounter; Y93.01 Activity, walking, marching and hiking; Y92.89 Other specified places as the place of occurrence of the external cause; J44.9 Chronic obstructive pulmonary disease, unspecified; E03.9 Hypothyroidism, unspecified; Z98.0 Intestinal bypass and anastomosis status
CPT/HCPCS: 0223U; 36415; 70450; 70486; 72125; 80053; 85025; 85610; 85730; 99284

== ENCOUNTER 2024-02-24 10:12 | Inpatient (IN) | payer MEDICARE ==
[~2024-02-24] VITALS: Ht 162.6 cm; Wt 53.5 kg
[2024-02-24] VITALS (26 sets, daily range): BP systolic 115–168; BP diastolic 58–85; PULSE 97–128; RESP 10–34; TEMP 97.2–98.2; O2SAT 91–99
[2024-02-24] MEDS: SODIUM CHLORIDE 0.9% 1000ML 1,630 ML IV SCH (10:53)
[2024-02-24] MEDS ORDERED: SODIUM CHLORIDE 0.9% 500ML 500 ML ONE (10:53)
[2024-02-24 10:56] LABS: BASOPHILS # (AUTO) 0.1 (0.0-0.1); BASOPHILS % 0.5 % (0.0-1.0); EOSINOPHILS # (AUTO) 0.1 (0.0-0.4); EOSINOPHILS % 0.8 % (0.0-6.0); HEMATOCRIT 45.8 % (34.2-44.1); HEMOGLOBIN 13.3 g/dL (12.0-16.0); LYMPHOCYTES # (AUTO) 0.8 (1.0-3.2); LYMPHOCYTES % 5.5 % (18.0-39.1); MEAN CORPUSCULAR HEMOGLOBIN 31.5 pg (28-32); MEAN CORPUSCULAR VOLUME 108.5 fL (81-99); MONOCYTES # (AUTO) 1.6 (0.2-0.8); MONOCYTES % 11.3 % (4.4-11.3); NEUTROPHILS # (AUTO) 11.5 (2.1-6.9); NEUTROPHILS % 80.4 % (38.7-80.0); PLATELET COUNT 226 x10e3/uL (140-360); RED BLOOD COUNT 4.22 x10e6/uL (3.6-5.1); RED CELL DISTRIBUTION WIDTH 14.2 % (11.7-14.4); WHITE BLOOD COUNT 14.31 x10e3/uL (4.8-10.8)
[2024-02-24 11:08] LABS: INR 0.97; PROTHROMBIN TIME 13.5 seconds (11.9-14.5)
[2024-02-24 11:09] LABS: PARTIAL THROMBOPLASTIN TIME 30.3 seconds (23.8-35.5)
[2024-02-24 11:37] LABS: ALBUMIN/GLOBULIN RATIO 0.8 (0.8-2.0); ANION GAP 19.7 mmol/L (8-16); BILIRUBIN,TOTAL 0.8 mg/dL (0.2-1.2); CALCIUM 9.9 mg/dL (8.4-10.2); CREATININE, SERUM 0.74 mg/dL (0.57-1.11); POTASSIUM 4.7 mmol/L (3.5-5.1); TOTAL PROTEIN 6.6 g/dL (6.5-8.1)
[2024-02-24] MEDS ORDERED: IOPAMIDOL 370 MG/ML 100 ML INFUS..BTL INJ ONE (11:43)
[2024-02-24] MEDS: LEVOFLOXACIN 750MG/D5W 150ML 150 ML IV SCH (12:01)
[2024-02-24] MEDS ORDERED: METRONIDAZOLE 500MG/NS 100ML 100 ML IV ONE (14:00)
[2024-02-24] MEDS ORDERED: MUPIROCIN 2% OINT 22 GM TUBE TOP SCH (14:15)
[2024-02-24] MEDS ORDERED: SODIUM CHLORIDE FLUSH 10 ML SYR INJ PRN (14:15)
[2024-02-24] MEDS ORDERED: EVISTA60 MG PO (17:12)
[2024-02-24] MEDS ORDERED: VITAMIN D3250 MCG PO (17:14)
[2024-02-24] MEDS: ENOXAPARIN SOD INJ 40 MG/0.4 ML SYR SC SCH (17:29)
[2024-02-24] MEDS: METRONIDAZOLE 500MG/NS 100ML 100 ML IV ONE (19:25)
[2024-02-25] VITALS (30 sets, daily range): BP systolic 103–148; BP diastolic 55–85; PULSE 94–121; RESP 5–34; TEMP 97.4–98.5; O2SAT 87–99
[2024-02-25] MEDS: LEVOTHYROXINE SODIUM 75 MCG TAB PO SCH (08:39)
[2024-02-25 09:05] LABS: BASOPHILS % 0.2 % (0.0-1.0); EOSINOPHILS % 0.2 % (0.0-6.0); HEMATOCRIT 40.9 % (34.2-44.1); HEMOGLOBIN 12.2 g/dL (12.0-16.0); LYMPHOCYTES # (AUTO) 0.5 (1.0-3.2); LYMPHOCYTES % 4.8 % (18.0-39.1); MEAN CORPUSCULAR HEMOGLOBIN 32.3 pg (28-32); MEAN CORPUSCULAR HGB CONC 29.8 g/dL (31-35); MEAN CORPUSCULAR VOLUME 108.2 fL (81-99); MONOCYTES # (AUTO) 1.2 (0.2-0.8); MONOCYTES % 11.6 % (4.4-11.3); NEUTROPHILS # (AUTO) 8.5 (2.1-6.9); PLATELET COUNT 179 x10e3/uL (140-360); RED BLOOD COUNT 3.78 x10e6/uL (3.6-5.1); RED CELL DISTRIBUTION WIDTH 14.4 % (11.7-14.4); WHITE BLOOD COUNT 10.48 x10e3/uL (4.8-10.8)
[2024-02-25 09:19] LABS: ALBUMIN 2.5 g/dL (3.5-5.0); ALBUMIN/GLOBULIN RATIO 0.8 (0.8-2.0); ANION GAP 15.8 mmol/L (8-16); BILIRUBIN,TOTAL 0.7 mg/dL (0.2-1.2); CALCIUM 8.8 mg/dL (8.4-10.2); CREATININE, SERUM 0.63 mg/dL (0.57-1.11); POTASSIUM 4.8 mmol/L (3.5-5.1); TOTAL PROTEIN 5.5 g/dL (6.5-8.1)
[2024-02-25] MEDS: ACETAMINOPHEN 325 MG TAB PO PRN (12:12)
[2024-02-25 13:50] LABS: BILIRUBIN,URINE NEGATIVE (NEGATIVE); CLARITY,URINE CLEAR (CLEAR); COLOR,URINE YELLOW (YELLOW); GLUCOSE, URINE NEGATIVE (NEGATIVE); KETONES,URINE TRACE (NEGATIVE); LEUKOCYTE ESTERASE ,URINE NEGATIVE (NEGATIVE); NITRITE,URINE NEGATIVE (NEGATIVE); PH,URINE 6 (5 - 7); PROTEIN,URINE DIPSTICK 2+ (NEGATIVE); URINE UROBILINOGEN 0.2 mg/dL (0.2 - 1)
[2024-02-25 13:54] LABS: BACTERIA,URINE FEW /HPF; EPITHELIAL CELLS,URINE RARE /LPF; RBC,URINE 0-5 /HPF (0-5); WBC,URINE (MAN) 0-5 /HPF (0-5)
[2024-02-25] MEDS: SILVER SULFADIAZINE 50GM CREAM TOP SCH (16:30)
[2024-02-25] MEDS: ONDANSETRON HCL INJ 2MG/ML 2ML 2 MG/ML VIAL IV PRN (22:46)
[2024-02-26] VITALS (20 sets, daily range): BP systolic 110–136; BP diastolic 51–87; PULSE 96–119; RESP 14–32; TEMP 97–98.7; O2SAT 90–99
[2024-02-26 06:34] LABS: BASOPHILS % 0.4 % (0.0-1.0); EOSINOPHILS % 0.2 % (0.0-6.0); HEMATOCRIT 42.5 % (34.2-44.1); LYMPHOCYTES # (AUTO) 0.4 (1.0-3.2); LYMPHOCYTES % 3.5 % (18.0-39.1); MEAN CORPUSCULAR HEMOGLOBIN 31.8 pg (28-32); MEAN CORPUSCULAR HGB CONC 28.2 g/dL (31-35); MEAN CORPUSCULAR VOLUME 112.7 fL (81-99); MONOCYTES # (AUTO) 0.9 (0.2-0.8); MONOCYTES % 8.3 % (4.4-11.3); NEUTROPHILS # (AUTO) 8.9 (2.1-6.9); NEUTROPHILS % 84.7 % (38.7-80.0); PLATELET COUNT 152 x10e3/uL (140-360); RED BLOOD COUNT 3.77 x10e6/uL (3.6-5.1); RED CELL DISTRIBUTION WIDTH 14.1 % (11.7-14.4); WHITE BLOOD COUNT 10.51 x10e3/uL (4.8-10.8)
[2024-02-26 07:00] LABS: ALBUMIN 2.4 g/dL (3.5-5.0); ALBUMIN/GLOBULIN RATIO 0.8 (0.8-2.0); ANION GAP 12.7 mmol/L (8-16); BILIRUBIN,TOTAL 0.6 mg/dL (0.2-1.2); CALCIUM 8.8 mg/dL (8.4-10.2); CREATININE, SERUM 0.63 mg/dL (0.57-1.11); POTASSIUM 4.7 mmol/L (3.5-5.1); TOTAL PROTEIN 5.5 g/dL (6.5-8.1)
[2024-02-26] MEDS: SILVER SULFADIAZINE 25 GM CREAM..G. TP SCH (09:25)
[2024-02-26 10:52] LABS: LYMPHOCYTES % (MANUAL) 4 % (19-48); MONOCYTES % (MANUAL) 7 % (3.4-9.0); NEUTROPHILS % (MANUAL) 89 % (40-74); PLATELET ESTIMATE ADEQUATE; PLATELET MORPHOLOGY COMMENT NORMAL
[2024-02-26 10:53] LABS: HYPOCHROMASIA SLIGHT
[2024-02-27] VITALS (13 sets, daily range): BP systolic 103–135; BP diastolic 49–71; PULSE 84–111; RESP 15–27; TEMP 97.9–98.8; O2SAT 94–100
[2024-02-27 06:56] LABS: BASOPHILS % 0.1 % (0.0-1.0); EOSINOPHILS % 0.2 % (0.0-6.0); HEMATOCRIT 39.5 % (34.2-44.1); HEMOGLOBIN 11.8 g/dL (12.0-16.0); LYMPHOCYTES # (AUTO) 0.4 (1.0-3.2); LYMPHOCYTES % 3.8 % (18.0-39.1); MEAN CORPUSCULAR HGB CONC 29.9 g/dL (31-35); MONOCYTES # (AUTO) 0.7 (0.2-0.8); MONOCYTES % 7.9 % (4.4-11.3); NEUTROPHILS # (AUTO) 7.9 (2.1-6.9); NEUTROPHILS % 85.2 % (38.7-80.0); PLATELET COUNT 153 x10e3/uL (140-360); RED BLOOD COUNT 3.69 x10e6/uL (3.6-5.1); WHITE BLOOD COUNT 9.23 x10e3/uL (4.8-10.8)
[2024-02-27 07:17] LABS: ANION GAP 13.9 mmol/L (8-16); CALCIUM 8.8 mg/dL (8.4-10.2); CREATININE, SERUM 0.57 mg/dL (0.57-1.11); POTASSIUM 4.9 mmol/L (3.5-5.1)
[2024-02-27] MEDS ORDERED: ALBUTEROL/IPRATROPIUM 3 ML NEB NEB PRN (08:30)
[2024-02-27] MEDS ORDERED: Morphine 2mg Syringe 2 MG/ML SYR IV PRN (08:30)
[2024-02-27] MEDS ORDERED: HYDROCODONE/APAP 7.5MG-325MG 1 EA TAB PO PRN (08:30)
[2024-02-27] MEDS: SENNA-S TABLET PO SCH (08:57)
[2024-02-27] MEDS: FAMOTIDINE 20 MG/2 ML VIAL IV SCH (08:57)
[2024-02-27] MEDS: ALPRAZOLAM 0.25 MG TAB PO PRN (09:43)
[2024-02-27] MEDS ORDERED: ALBUTEROL/IPRATROPIUM 3 ML NEB NEB SCH (13:00)
== END 2024-02-27 09:39 | disposition hospice, inpatient (51) | DRG 871 ==
LOC: ER 10:15 → ERHOLD 14:51 → ICU 15:36
PROVIDERS: ADMIT Internal Medicine; ATTEND Internal Medicine
PROC: 3E0333Z Introduction of Anti-inflammatory into Peripheral Vein, Percutaneous Approach (ICD-10-PCS; principal; 2024-02-24)
DX: A41.9 Sepsis, unspecified organism (principal); E43 Unspecified severe protein-calorie malnutrition; J69.0 Pneumonitis due to inhalation of food and vomit; J96.02 Acute respiratory failure with hypercapnia; J96.01 Acute respiratory failure with hypoxia; J44.1 Chronic obstructive pulmonary disease with (acute) exacerbation; L03.313 Cellulitis of chest wall; C78.7 Secondary malignant neoplasm of liver and intrahepatic bile duct; E87.20 Acidosis, unspecified; R65.20 Severe sepsis without septic shock; R62.7 Adult failure to thrive; Z66 Do not resuscitate; C50.911 Malignant neoplasm of unspecified site of right female breast; Z99.81 Dependence on supplemental oxygen; E03.9 Hypothyroidism, unspecified; J43.9 Emphysema, unspecified; R53.81 Other malaise; R19.7 Diarrhea, unspecified; Z68.20 Body mass index [BMI] 20.0-20.9, adult; Z11.52 Encounter for screening for COVID-19; Z79.890 Hormone replacement therapy; Z92.21 Personal history of antineoplastic chemotherapy; Z92.3 Personal history of irradiation; Z90.49 Acquired absence of other specified parts of digestive tract; Z88.5 Allergy status to narcotic agent; Z87.891 Personal history of nicotine dependence
CPT/HCPCS: 36415; 71045; 71260; 74177; 80048; 80053; 81001; 83605; 83690; 83880; 85025; 85610; 85730; 87040; 87086; 87400; 93005; 93306; 94660; 94799; 99252; 99284; J1650; J2270; J2405; J2470; J2543; J7030; J7040; J7050; Q9967; U0002

== ENCOUNTER 2024-02-27 09:40 | Inpatient (IN) | payer OTHER ==
[2024-02-27] VITALS (14 sets, daily range): BP systolic 95–130; BP diastolic 52–73; PULSE 104–120; RESP 9–29; TEMP 97.5; O2SAT 96–98
[~2024-02-27 09:40] MED LIST changes: +EVISTA60 MG PO; +VITAMIN D3250 MCG PO
[2024-02-27] MEDS ORDERED: LORAZEPAM INJ 2 MG/ML VIAL IV PRN (10:45)
[2024-02-27] MEDS ORDERED: ACETAMINOPHEN 650 MG SUPP PR PRN (10:45)
[2024-02-27] MEDS ORDERED: BISACODYL 10 MG SUPP PR PRN (10:45)
[2024-02-27] MEDS: SCOPOLAMINE 1 MG PATCH TOP SCH (12:09)
[2024-02-27] MEDS: LORAZEPAM INJ 2 MG/ML VIAL IV PRN (13:58)
[2024-02-27] MEDS: ONDANSETRON HCL INJ 2MG/ML 2ML 2 MG/ML VIAL IV PRN (16:09)
[2024-02-27] MEDS: HYDROMORPHONE 2MG/ML IV PRN (16:10)
[2024-02-28 07:05] VITALS: PULSE 106; RESP 13; O2SAT 92
[2024-02-28 10:32] VITALS: PULSE 103; RESP 16; O2SAT 91
[2024-02-28 19:00] VITALS: BP 40/26; PULSE 77; O2SAT 87
[2024-02-28 20:18] VITALS: PULSE 62; RESP 10; O2SAT 90
[2024-02-28 21:00] VITALS: BP 30/20; PULSE 55; O2SAT 91
== END 2024-02-29 02:16 | disposition expired | DRG 951 ==
LOC: ICU 09:40
PROVIDERS: ADMIT Internal Medicine; ATTEND Internal Medicine
DX: Z51.5 Encounter for palliative care (principal); A41.9 Sepsis, unspecified organism; E43 Unspecified severe protein-calorie malnutrition; R65.20 Severe sepsis without septic shock; J18.9 Pneumonia, unspecified organism; E87.20 Acidosis, unspecified; C50.919 Malignant neoplasm of unspecified site of unspecified female breast; Z99.81 Dependence on supplemental oxygen; J44.9 Chronic obstructive pulmonary disease, unspecified; R19.7 Diarrhea, unspecified; Z79.890 Hormone replacement therapy; Z85.3 Personal history of malignant neoplasm of breast; Z92.3 Personal history of irradiation; Z92.21 Personal history of antineoplastic chemotherapy; Z90.49 Acquired absence of other specified parts of digestive tract; Z88.5 Allergy status to narcotic agent; Z87.891 Personal history of nicotine dependence
CPT/HCPCS: 94799; J2060; J2405